=== PATIENT | male | born 1955 | race Caucasian/White ===

== ENCOUNTER 2019-04-27 18:21 | Inpatient (IN) | payer OTHER ==
[~2019-04-27] VITALS: Ht 188 cm; Wt 100.0 kg
[2019-04-27] MEDS ORDERED: azithromycin/NS 500mg/250ml 250 ML IV ONE (18:45)
[2019-04-27] MEDS ORDERED: ipratropium/albuterol 3ml nebule NEB ONE (18:45)
[2019-04-27] MEDS ORDERED: methylPREDNISolone sod succ 125mg/2ml vial IV ONE (18:45)
[2019-04-27] MEDS ORDERED: CefTRIAXone 2gm/D5W 50ml 50 ML IV ONE (18:45)
[2019-04-27] MEDS ORDERED: normal saline 1000ML IV soln IV ONE (18:45)
[2019-04-27 19:28] LABS: EOSINOPHILS # (AUTO) 0.3 X10'3 (0-0.9); EOSINOPHILS % (AUTO) 0.8 % (0-6); MEAN PLATELET VOLUME 8.9 FL (7.4-10.4)
[2019-04-27 19:30] LABS: BASOPHILS # (AUTO) 0.8 X10'3 (0-0.2); LYMPHOCYTES # (AUTO) 1.3 X10'3 (1.1-4.8); LYMPHOCYTES % (AUTO) 3.3 % (21-51); MEAN CORPUSCULAR HEMOGLOBIN 30.3 PG (27.0-31.0); MEAN CORPUSCULAR HGB CONC 32.4 g/dL (33.0-36.5); MEAN CORPUSCULAR VOLUME 93.5 FL (78-98); MONOCYTES # (AUTO) 1.2 X10'3 (0-0.9); MONOCYTES % (AUTO) 3.1 % (2-12); NEUTROPHILS # (AUTO) 36.3 X10'3 (1.8-7.7); NEUTROPHILS % (AUTO) 90.8 % (42-75); PLATELET COUNT 326 X10'3 (140-440); RED BLOOD COUNT 5.99 X10'6 (4.70-6.10); RED CELL DISTRIBUTION WIDTH 14.5 % (11.5-14.5)
[2019-04-27 19:32] LABS: PARTIAL THROMBOPLASTIN TIME 30 SECONDS (22-32)
[2019-04-27 19:35] LABS: ALANINE AMINOTRANSFERASE 23 U/L (12-78); ALBUMIN 3.6 G/DL (3.4-5.0); ALBUMIN/GLOBULIN RATIO 0.8 (1.1-1.5); ALKALINE PHOSPHATASE 65 IU/L (46-116); ANION GAP 6 (8-16); ASPARTATE AMINO TRANSFERASE 28 U/L (10-37); BILIRUBIN,TOTAL 0.7 MG/DL (0.1-1.0); BLOOD UREA NITROGEN 15 MG/DL (7-18); BUN/CREATININE RATIO 15.3 (5.4-32.0); CALCIUM 9.3 MG/DL (8.5-10.1); CHLORIDE 99 MMOL/L (99-107); CREATININE 0.98 MG/DL (0.60-1.10); GLUCOSE 101 MG/DL (70-104); POTASSIUM 4.4 MMOL/L (3.5-5.1); SODIUM 139 MMOL/L (135-145); TOTAL CARBON DIOXIDE 33.9 MMOL/L (24-32); TOTAL PROTEIN 7.9 G/DL (6.4-8.2); eGFR 77 ML/MIN
[2019-04-27 19:38] LABS: HEMOGLOBIN 18.1 g/dl (14.0-17.9)
[2019-04-27] MEDS ORDERED: METO-395 PO (20:42)
[2019-04-27] MEDS ORDERED: ALBU8.5H8 IH (20:42)
[2019-04-27] MEDS ORDERED: FURO-150 PO (20:42)
[2019-04-27] MEDS ORDERED: SIMV-42 PO (20:42)
[2019-04-27] MEDS ORDERED: TIOT4MIS3 INH (20:42)
[2019-04-27 21:22] LABS: PLATELET ESTIMATE NORMAL; TOTAL CELLS COUNTED 100
[2019-04-27 21:30] LABS: ABG BASE EXCESS -0.9 mmol/L (-2.0-3.0); ABG HCO3 24.2 mmol/L (22.0-26.0); ABG OXYGEN SATURATION 94.3 % (95-98); ABG PCO2 (T) 42.5 mmHg (35.0-45.0); ABG PH (T) 7.376 (7.350-7.450); ABG PO2 (T) 73.8 mmHg (83-108); ALLEN'S TEST Positive; FCOHb 2.4 % (0.5-1.5); FLOW 4 L/min; FMetHb 0.3 % (0.3-1.12); FO2Hb 91.8 % (94-100); PATIENT TEMPERATURE 37.3; TOTAL HEMOGLOBIN 18.7 G/dl (14.0-17.9)
[2019-04-27] MEDS ORDERED: ondansetron/PF 4mg/2ml inj IV PRN (22:25)
[2019-04-27] MEDS ORDERED: potassium CL 10mEq/100ml bag 100 ML IV PRN ×2 (22:25)
[2019-04-27] MEDS ORDERED: potassium Cl 20 mEq SR tablet PO PRN ×2 (22:25)
[2019-04-27] MEDS ORDERED: ipratropium/albuterol 3ml nebule NEB PRN ×2 (22:25)
[2019-04-27] MEDS ORDERED: magnesium 4gm in 100ml NS 100 ML IV PRN (22:25)
[2019-04-27] MEDS ORDERED: magnesium Cl slow-release 64mg tablet PO PRN (22:25)
[2019-04-27] MEDS ORDERED: acetaminophen 325mg tablet PO PRN (22:25)
[2019-04-27] MEDS ORDERED: magnesium 2GM in 50ml NS 50 ML IV PRN (22:25)
[2019-04-27] MEDS ORDERED: albuterol 2.5 MG/3 ML nebule NEB PRN (23:05)
[2019-04-28] VITALS (7 sets, daily range): BP systolic 118–164; BP diastolic 64–91
--- NOTE | 2019-04-28 | NUR ---
Patient in room PCU 3013. I have received report from LUCY Calvo and had the opportunity to ask questions and assume patient care.
--- NOTE | 2019-04-28 01:59 | NUR ---
Patient arrived on unit at approximately 0015 via [facility]. Patient was placed on tele monitor, MRSA swab obtained, 2 RN skin check complete, vital signs obtained. Patient is confused and unable to answer DART questions.
[2019-04-28] MEDS: ipratropium/albuterol 3ml nebule NEB SCH ×6 (03:28→23:05)
[2019-04-28 05:00] LABS: EOSINOPHILS # (AUTO) 0.1 X10'3 (0-0.9); HEMOGLOBIN 17.4 g/dl (14.0-17.9); MONOCYTES # (AUTO) 0.4 X10'3 (0-0.9)
[2019-04-28 05:02] LABS: ALBUMIN 3.1 G/DL (3.4-5.0); ANION GAP 6 (8-16); BLOOD UREA NITROGEN 15 MG/DL (7-18); BUN/CREATININE RATIO 13.3 (5.4-32.0); CALCIUM 8.5 MG/DL (8.5-10.1); CHLORIDE 101 MMOL/L (99-107); CREATININE 1.13 MG/DL (0.60-1.10); GLUCOSE 145 MG/DL (70-104); MAGNESIUM 1.8 MG/DL (1.5-2.4); SODIUM 138 MMOL/L (135-145); TOTAL CARBON DIOXIDE 30.9 MMOL/L (24-32); eGFR 65 ML/MIN
[2019-04-28 05:03] LABS: BASOPHILS # (AUTO) 0.4 X10'3 (0-0.2); BASOPHILS % (AUTO) 0.9 % (0-1); EOSINOPHILS % (AUTO) 0.3 % (0-6); LYMPHOCYTES # (AUTO) 0.8 X10'3 (1.1-4.8); MEAN CORPUSCULAR HEMOGLOBIN 31.2 PG (27.0-31.0); MEAN CORPUSCULAR HGB CONC 33.4 g/dL (33.0-36.5); MEAN CORPUSCULAR VOLUME 93.3 FL (78-98); MEAN PLATELET VOLUME 8.6 FL (7.4-10.4); NEUTROPHILS # (AUTO) 39.1 X10'3 (1.8-7.7); NEUTROPHILS % (AUTO) 95.8 % (42-75); PLATELET COUNT 327 X10'3 (140-440); RED BLOOD COUNT 5.57 X10'6 (4.70-6.10); RED CELL DISTRIBUTION WIDTH 14.6 % (11.5-14.5)
[2019-04-28 05:28] LABS: WHITE BLOOD COUNT 40.8 X10'3 (4.5-11.0)
--- NOTE | 2019-04-28 05:32 | NUR ---
Sent to [facility] PAGER ID: [phone] MESSAGE: room 3013B Salazar Denis: fyi WBC'S increased from 40.0 to 40.8 Thanks, Mayra [phone]
--- NOTE | 2019-04-28 06:33 | NUR ---
Problems reprioritized. Patient report given, questions answered & plan of care reviewed with levon Mack.
[2019-04-28] MEDS: metoprolol succinate 25mg (24-HOUR) SR. Tablet PO SCH ×2 (07:50→21:26)
[2019-04-28] MEDS: methylPREDNISolone sod succ/PF 40mg inj. IV SCH ×2 (07:51→21:24)
[2019-04-28] MEDS: heparin, porcine 5000 units/ml vial SQ SCH ×2 (07:52→21:25)
[2019-04-28] MEDS: K and/or MAG REPLACEMENT MC SCH ×2 (08:00→20:00)
[2019-04-28 09:29] LABS: TOTAL CELLS COUNTED 100
[2019-04-28 09:31] LABS: ANISOCYTOSIS 1+; MICROCYTOSIS 1+
--- NOTE | 2019-04-28 10:32 | NUR ---
Alcohol Habit: Pt. admit to drinking 5-6 drinks per day. He has some anxiety today.
[2019-04-28 12:00] LABS: CLARITY,URINE CLEAR (Clear); GLUCOSE, URINE NEGATIVE (Neg); KETONES,URINE 15 mg/dl (Neg); LEUKOCYTE ESTERASE ,URINE NEGATIVE (Neg); NITRITES, URINE NEGATIVE (Neg); OCCULT BLOOD,URINE TRACE-INTACT (Neg); PROTEIN,URINE 100 mg/dl (Neg); UROBILINOGEN,URINE 0.2 E.U/dL (0.2-1.0)
[2019-04-28 12:05] LABS: UA COLLECTION TYPE CLN CATCH MIDSTREAM
[2019-04-28 12:06] LABS: COLOR,URINE DARK YELLOW (Yellow)
[2019-04-28 12:07] LABS: BACTERIA,URINE NONE SEEN /HPF (Neg); RBC,URINE 0-2 /HPF (0-2); SQUAMOUS EPITHELIAL CELL,UR FEW /LPF (FEW); WBC,URINE 0-4 /HPF (0-4)
--- NOTE | 2019-04-28 12:20 | NUR ---
Page to Dr. Romano Pt. Salazar Sayer: [id number] History of ETOH daily 5+ drinks, Ketone Breath, Anxiety, Minor Confusion. [facility] states [facility] had intended to do [facility] pancreas study, but Pt. missed appointment. Thank You Natasha AYALA
[2019-04-28] MEDS ORDERED: haloperidol lactate 5mg/ml inj IM PRN (12:35)
[2019-04-28] MEDS ORDERED: LORazepam 2 mg/ml vial IV PRN (12:35)
--- NOTE | 2019-04-28 12:40 | NUR ---
Malnutrition consult: Pt admitted for COPD exacerbation and sepsis r/t pneumonia. Per physical assessment, girlfriend reports pt has dementia and currently AOx1, not appropriate for high protein education at this time. Per MD, pt is well developed and well nourished with +1 edema bilateral ankle and no muscle weakness. Current 100kg bed scaled wt this admit, does not have weight hx. Only PO documentation 50% starches first heart healthy meal. Insufficient information at this time to determine malnutrition status. No documented BM at this time. Will continue to monitor. Recommendation: 1. continue heart healthy diet 2. monitor need for ONS 3. bowel care as needed 4. weight per rx Addendum: 04/28/19 at 1240 by Wing Shante RIDER Amended: Links added. Addendum: 04/28/19 at [address] RD Approved
[2019-04-28] MEDS: MVI, adult No.4 with vit. K 10 ML in dextrose 5% water 500ml 500 ML IV SCH ×2 (14:37)
[2019-04-28] MEDS: thiamine inj. 100 MG, folic acid inj. 2 MG in normal saline 100ml IV soln 100 ML IV SCH (14:38)
[2019-04-28] MEDS: metroNIDAZOLE-Flagyl 500mg/NS 100 ML IV SCH (16:37)
[2019-04-28] MEDS: azithromycin/NS 500mg/250ml 250 ML IV SCH (17:34)
[2019-04-28] MEDS: LORazepam 2 mg/ml vial IV PRN ×2 (17:55→19:31)
[2019-04-28] MEDS ORDERED: CefTRIAXone/D5W-Rocephin 1gm 50 ML IV SCH (18:00)
--- NOTE | 2019-04-28 18:00 | NUR ---
IV ativan 2mg for tremors.
--- NOTE | 2019-04-28 18:33 | NUR ---
Patient in room PCU 3013B. I have received report from LUCY Kaur and had the opportunity to ask questions and assume patient care. Patient denies CP, dizziness, n/v, 3L of oxygen via NC, rated pain 1/10.
[2019-04-28] MEDS: famotidine 10mg tablet PO SCH (21:24)
[2019-04-28] MEDS: atorvastatin 10mg tablet PO SCH (21:25)
[2019-04-28] MEDS: diatr meglu/diatrizoate 30ml oral sol.-(3 dose) bottle PO SCH (21:27)
--- NOTE | 2019-04-28 22:15 | NUR ---
Paged Dr Juan Antonio Camacho Sent promotional table spacer PAGER ID: [phone] MESSAGE: Salazar Denis Room 313B. while I was in break the patient fell on his head. At the time of the fall (22:50) his BP:128/79 (95), HR:95; SPO2: 90 in 3L via NC, and RR: 20. 1 Ativan dose 2MG at 19:35. Place bed alarm and TAB Pls. advise Benjamin (240 character message out of a maximum of 240) Addendum: 04/28/19 at 2314 by Benjamin Rivers RN Per Dr. Romano: If patient feels pain then CT-Head CT-Head results: IMPRESSION: 1. No acute intracranial findings. 2. Small focus of right parietal encephalomalacia. 2.
--- NOTE | 2019-04-28 22:30 | NUR ---
CT Head results IMPRESSION: 1. No acute intracranial findings. 2. Small focus of right parietal encephalomalacia.
[2019-04-29] MEDS: metroNIDAZOLE-Flagyl 500mg/NS 100 ML IV SCH ×4 (00:32→23:59)
[2019-04-29 02:00] VITALS: BP 110/59
[2019-04-29] MEDS: ipratropium/albuterol 3ml nebule NEB SCH ×6 (02:47→22:43)
[2019-04-29 04:31] LABS: BASOPHILS # (AUTO) 0.2 X10'3 (0-0.2); BASOPHILS % (AUTO) 0.5 % (0-1); EOSINOPHILS % (AUTO) 0 % (0-6); HEMATOCRIT 51.9 % (42.0-52.0); HEMOGLOBIN 16.9 g/dl (14.0-17.9); LYMPHOCYTES % (AUTO) 2.3 % (21-51); MEAN CORPUSCULAR HEMOGLOBIN 30.6 PG (27.0-31.0); MEAN CORPUSCULAR HGB CONC 32.6 g/dL (33.0-36.5); MEAN CORPUSCULAR VOLUME 93.8 FL (78-98); MEAN PLATELET VOLUME 8.5 FL (7.4-10.4); MONOCYTES % (AUTO) 2.1 % (2-12); NEUTROPHILS # (AUTO) 42.6 X10'3 (1.8-7.7); NEUTROPHILS % (AUTO) 95.1 % (42-75); PLATELET COUNT 332 X10'3 (140-440); RED BLOOD COUNT 5.54 X10'6 (4.70-6.10); RED CELL DISTRIBUTION WIDTH 14.9 % (11.5-14.5)
[2019-04-29 04:49] LABS: WHITE BLOOD COUNT 44.9 X10'3 (4.5-11.0)
--- NOTE | 2019-04-29 04:52 | NUR ---
Page Dr. Romano Page Sent promotional table spacer PAGER ID: [phone] MESSAGE: PRESTON: Salazar Denis Room# [id number] WBC is 44.9. Previously was 40.8 Thank you, Benjamin
[2019-04-29 04:56] LABS: ALBUMIN 3.1 G/DL (3.4-5.0); AMYLASE 31 U/L (25-115); ANION GAP 3 (8-16); BLOOD UREA NITROGEN 21 MG/DL (7-18); BUN/CREATININE RATIO 17.9 (5.4-32.0); CALCIUM 8.3 MG/DL (8.5-10.1); CHLORIDE 104 MMOL/L (99-107); CREATININE 1.17 MG/DL (0.60-1.10); GLUCOSE 141 MG/DL (70-104); LIPASE 68 U/L (73-393); MAGNESIUM 2.1 MG/DL (1.5-2.4); PHOSPHORUS 4.1 MG/DL (2.3-4.5); SODIUM 140 MMOL/L (135-145); TOTAL CARBON DIOXIDE 33.5 MMOL/L (24-32); eGFR 63 ML/MIN
[2019-04-29 06:00] VITALS: BP 125/77
--- NOTE | 2019-04-29 06:30 | NUR ---
Problems reprioritized. Patient report given, questions answered & plan of care reviewed with LUCY Miller. Patient stable at shift change
--- NOTE | 2019-04-29 06:56 | NUR ---
Patient in room U 3013b. I have received report from and had the opportunity to ask questions and assume patient care. Addendum: 04/29/19 at 0657 by Angela Butler RN Report received from Kortney AYALA
[2019-04-29] MEDS: diatr meglu/diatrizoate 30ml oral sol.-(3 dose) bottle PO SCH ×2 (07:31→09:58)
[2019-04-29] MEDS: metoprolol succinate 25mg (24-HOUR) SR. Tablet PO SCH ×2 (07:33→20:39)
[2019-04-29] MEDS: methylPREDNISolone sod succ/PF 40mg inj. IV SCH ×2 (07:34→20:37)
[2019-04-29] MEDS: thiamine inj. 100 MG, folic acid inj. 2 MG in normal saline 100ml IV soln 100 ML IV SCH (07:37)
[2019-04-29] MEDS: heparin, porcine 5000 units/ml vial SQ SCH ×2 (07:37→20:38)
[2019-04-29] MEDS: CefTRIAXone 2gm/D5W 50ml 50 ML IV SCH (07:37)
[2019-04-29] MEDS: K and/or MAG REPLACEMENT MC SCH ×2 (08:00→20:00)
[2019-04-29 09:15] LABS: NUCLEATED RED BLOOD CELLS 1 /100WBC (0-0); PLATELET ESTIMATE NORMAL; TOTAL CELLS COUNTED 100
[2019-04-29 09:16] LABS: ANISOCYTOSIS 1+; LARGE PLATELETS FEW
[2019-04-29] MEDS ORDERED: iohexol 300mg/ml 100ml inj. ONE (09:56)
[2019-04-29 10:02] LABS: PLATELET ESTIMATE NORMAL
[2019-04-29 11:00] VITALS: BP 121/76
[2019-04-29] MEDS: MVI, adult No.4 with vit. K 10 ML in dextrose 5% water 500ml 500 ML IV SCH ×2 (11:50)
--- NOTE | 2019-04-29 13:35 | NUR ---
Relieved for break, report given to jett Manzo RN, to assume care for 30 mins
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
--- NOTE | 2019-04-29 14:21 | NUR ---
Reassumed care of patient from relief RN
[2019-04-29 15:00] VITALS: BP 125/78
--- NOTE | 2019-04-29 16:16 | NUR ---
F/U for malnutrition consult: Pt seen at bedside and reports an increasing appetite. Pt PO intake trending up previously with avg 50-75% on heart healthy diet with last two meals avg 75-100% meeting nutrient needs if good PO intake persists. Pt states he normally eats small portions at home. Pt does not have visible fat or muscle wasting. Pt does not meet minimum requirement for malnutrition at this time. Pt documented with LBM of 04/26, however pt reports LBM 04/29. Will continue to follow. Malnutrition consult: Pt admitted for COPD exacerbation and sepsis r/t pneumonia. Per physical assessment, girlfriend reports pt has dementia and currently AOx1, not appropriate for high protein education at this time. Per MD, pt is well developed and well nourished with +1 edema bilateral ankle and no muscle weakness. Current 100kg bed scaled wt this admit, does not have weight hx. Only PO documentation 50% starches first heart healthy meal. Insufficient information at this time to determine malnutrition status. No documented BM at this time. Will continue to monitor. Recommendation: 1. continue heart healthy diet 2. monitor need for ONS 3. bowel care as needed 4. weight per rx Addendum: 04/29/19 at 1617 by Wing Shante RIDER Amended: Links added. Addendum: 04/29/19 at [address] Omaira Guadalupe
[2019-04-29] MEDS: azithromycin/NS 500mg/250ml 250 ML IV SCH (17:54)
[2019-04-29 18:00] VITALS: BP 128/81
--- NOTE | 2019-04-29 18:12 | NUR ---
Patient in room PCU 3013B. I have received report from Angela Taylor RN and had the opportunity to ask questions and assume patient care. Patient is alert and oriented x4, denies CP, dizziness, n/v, rated pain 0/10.
--- NOTE | 2019-04-29 18:12 | NUR ---
Problems reprioritized. Patient report given, questions answered & plan of care reviewed with Kortney AYALA. Patient sitting in bed, watching TV
[2019-04-29] MEDS: famotidine 10mg tablet PO SCH (20:38)
[2019-04-29] MEDS: atorvastatin 10mg tablet PO SCH (20:38)
[2019-04-29 22:00] VITALS: BP 118/79
[2019-04-30 02:00] VITALS: BP 111/56
[2019-04-30] MEDS: ipratropium/albuterol 3ml nebule NEB SCH ×3 (02:32→10:37)
[2019-04-30 05:24] LABS: EOSINOPHILS % (AUTO) 0 % (0-6); LYMPHOCYTES % (AUTO) 2.5 % (21-51)
[2019-04-30 05:26] LABS: BASOPHILS # (AUTO) 0.2 X10'3 (0-0.2); BASOPHILS % (AUTO) 0.6 % (0-1); HEMATOCRIT 50.1 % (42.0-52.0); HEMOGLOBIN 16.5 g/dl (14.0-17.9); MEAN CORPUSCULAR HEMOGLOBIN 31.1 PG (27.0-31.0); MEAN CORPUSCULAR VOLUME 94.1 FL (78-98); MEAN PLATELET VOLUME 9.5 FL (7.4-10.4); MONOCYTES # (AUTO) 0.9 X10'3 (0-0.9); MONOCYTES % (AUTO) 2.4 % (2-12); NEUTROPHILS # (AUTO) 36.6 X10'3 (1.8-7.7); NEUTROPHILS % (AUTO) 94.5 % (42-75); PLATELET COUNT 325 X10'3 (140-440); RED BLOOD COUNT 5.32 X10'6 (4.70-6.10); RED CELL DISTRIBUTION WIDTH 14.7 % (11.5-14.5)
[2019-04-30 05:28] LABS: ALBUMIN 3.1 G/DL (3.4-5.0); AMYLASE 39 U/L (25-115); ANION GAP 4 (8-16); BLOOD UREA NITROGEN 24 MG/DL (7-18); BUN/CREATININE RATIO 18.5 (5.4-32.0); CALCIUM 8.7 MG/DL (8.5-10.1); CHLORIDE 102 MMOL/L (99-107); GLUCOSE 119 MG/DL (70-104); LIPASE 80 U/L (73-393); PHOSPHORUS 4.5 MG/DL (2.3-4.5); POTASSIUM 4.5 MMOL/L (3.5-5.1); SODIUM 139 MMOL/L (135-145); TOTAL CARBON DIOXIDE 32.7 MMOL/L (24-32); eGFR 56 ML/MIN
[2019-04-30 05:34] LABS: WHITE BLOOD COUNT 38.7 X10'3 (4.5-11.0)
--- NOTE | 2019-04-30 05:40 | NUR ---
Page Sent to Dr. Romano promotional table spacer PAGER ID: [phone] MESSAGE: PRESTON: Salazar Denis in Room # 9261S. HIs WBC this morning is 38.7 although is high is trending down from yesterday 44.9. Please advice. Thank you- Benjamin
[2019-04-30 06:07] LABS: ANISOCYTOSIS FEW; PLATELET ESTIMATE NORMAL; TOTAL CELLS COUNTED 100; TOXIC GRANULATION 1+; TOXIC VACUOLATION 1+
--- NOTE | 2019-04-30 06:15 | NUR ---
Problems reprioritized. Patient report given, questions answered & plan of care reviewed with Angela Taylor RN. Patient stable at shift change
--- NOTE | 2019-04-30 06:49 | NUR ---
Patient in room PCU 3013B. I have received report from Kortney AYALA and had the opportunity to ask questions and assume patient care.
[2019-04-30] MEDS: CefTRIAXone 2gm/D5W 50ml 50 ML IV SCH (07:33)
[2019-04-30] MEDS: metoprolol succinate 25mg (24-HOUR) SR. Tablet PO SCH (07:34)
[2019-04-30] MEDS: methylPREDNISolone sod succ/PF 40mg inj. IV SCH (07:35)
[2019-04-30] MEDS: heparin, porcine 5000 units/ml vial SQ SCH (07:36)
[2019-04-30] MEDS ORDERED: multivitamins, therapeutics tablet PO SCH (08:00)
[2019-04-30] MEDS ORDERED: thiamine 100mg tablet PO SCH (08:00)
[2019-04-30] MEDS ORDERED: folic acid 1mg tablet PO SCH (08:00)
[2019-04-30] MEDS: K and/or MAG REPLACEMENT MC SCH (08:00)
[2019-04-30] MEDS: metroNIDAZOLE-Flagyl 500mg/NS 100 ML IV SCH (08:54)
[2019-04-30] MEDS ORDERED: FLU VACC QS2019-20 36MOS UP/PF 60 MCG/0.5 ML SYRINGE IMVAC ONE (10:00)
[2019-04-30 11:00] VITALS: BP 153/63
--- NOTE | 2019-04-30 13:30 | NUR ---
Per MD order, Dr. Cisneros, patient is stable for discharge. Relief RN Anais to discharge patient. Discharge packet printed and complied for relief RN to discharge when ride arrives.
--- NOTE | 2019-04-30 13:50 | NUR ---
Pt discharged at this time. IV removed, catheter intact. Tele monitor removed. Pt escorted by PCT to private vehicle via wheelchair, pt states he has all his belongings with him. Pt off unit at this time.
[2019-05-01] MEDS ORDERED: FLU VACC QS2019-20 36MOS UP/PF 60 MCG/0.5 ML SYRINGE IMVAC ONE (10:25)
== END 2019-04-30 14:52 | disposition home or self-care (01) | DRG 193 ==
LOC: ER 18:21 → ED HOLD 23:25 → EDBEDREQ 23:33 → CMPBEDREQ 04-28 00:10 → PCU 3S 04-28 00:11
PROVIDERS: ADMIT Internal Medicine; ATTEND Family Medicine
PROC: BW251ZZ Computerized Tomography (CT Scan) of Chest, Abdomen and Pelvis using Low Osmolar Contrast (ICD-10-PCS; principal; 2019-04-29)
DX: J18.9 Pneumonia, unspecified organism (principal); G93.41 Metabolic encephalopathy; J96.20 Acute and chronic respiratory failure, unspecified whether with hypoxia or hypercapnia; J44.0 Chronic obstructive pulmonary disease with (acute) lower respiratory infection; J44.1 Chronic obstructive pulmonary disease with (acute) exacerbation; C95.91 Leukemia, unspecified, in remission; F10.27 Alcohol dependence with alcohol-induced persisting dementia; E78.5 Hyperlipidemia, unspecified; F17.210 Nicotine dependence, cigarettes, uncomplicated; I10 Essential (primary) hypertension; Z79.899 Other long term (current) drug therapy; Z85.528 Personal history of other malignant neoplasm of kidney; Z86.73 Personal history of transient ischemic attack (TIA), and cerebral infarction without residual deficits; Z90.5 Acquired absence of kidney; Z99.81 Dependence on supplemental oxygen; Z71.41 Alcohol abuse counseling and surveillance of alcoholic
CPT/HCPCS: 36415; 36600; 70450; 71045; 71260; 74177; 80048; 80053; 81001; 82140; 82150; 82803; 83605; 83690; 83735; 84100; 84145; 85018; 85025; 85610; 85730; 87040; 87081; 93005; 93306; 94640; 94760; 96365; 96375; 97116; 97161; 97530; 99285; G0378; J0456; J0696; J1644; J2060; J2920; J2930; J3411; J3490; J7060; Q9963; Q9967